=== PATIENT | male | born 1995 | race African-American/Black ===

== ENCOUNTER → 2019-12-11 | Outpatient (CLI) | payer OTHER ==
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
== END | disposition home or self-care (01) ==
LOC: DXRAD 10:53 → EEVIPCON 10:53
PROVIDERS: ATTEND Family Medicine
DX: T18.8XXA Foreign body in other parts of alimentary tract, initial encounter (principal); X58.XXXA Exposure to other specified factors, initial encounter; Y93.89 Activity, other specified; Y92.89 Other specified places as the place of occurrence of the external cause; Y99.8 Other external cause status
CPT/HCPCS: 71045; 72170; 74018